=== PATIENT | female | born 2000 | race Caucasian/White ===

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

== ENCOUNTER 2018-04-27 15:48 | Emergency (ER) | payer BC ==
[~2018-04-27] VITALS: Ht 172.7 cm; Wt 52.2 kg
[2018-04-27 16:13] VITALS: BP 128/66
[2018-04-27] MEDS ORDERED: IPRATROPIUM BROM 0.5 MG/2.5ML INH SOL NEB ONE (16:45)
[2018-04-27] MEDS ORDERED: ALBUTEROL SULF 2.5 MG/0.5ML(0.5%) NEB SOLN NEB ONE (16:45)
[2018-04-27] MEDS ORDERED: DEXAMETHASONE SOD PHOS 10MG/1ML VIAL INJ IM ONE (16:45)
== END 2018-04-27 18:17 | disposition home or self-care (01) ==
LOC: ER 15:57
DX: J45.909 Unspecified asthma, uncomplicated (principal); F12.10 Cannabis abuse, uncomplicated
CPT/HCPCS: 71046; 76856; 94640; 96372; 99284; J1100; J7611; J7644